=== PATIENT | male | born 1965 | race Two or more races ===

== ENCOUNTER 2018-06-21 04:25 | Emergency (ER) | payer SELFPAY ==
[2018-06-21] MEDS ORDERED: LIDOCAINE 1% INJ-PF (10 MG/ML) 30 ML SDV INJ ONE ×2 (07:34→10:36)
[2018-06-21] MEDS ORDERED: LIDOCAINE 4%/TETRACAINE 0.5%/EPI 0.18% 5 ML TOPICAL SOLN TOP ONE (07:48)
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
[2018-06-21 11:36] VITALS: BP 139/79
== END 2018-06-21 11:35 | disposition home or self-care (01) ==
LOC: ER 04:25
DX: S01.311A Laceration without foreign body of right ear, initial encounter (principal); Y04.2XXA Assault by strike against or bumped into by another person, initial encounter; H92.01 Otalgia, right ear; Y93.84 Activity, sleeping; M25.559 Pain in unspecified hip; F17.200 Nicotine dependence, unspecified, uncomplicated
CPT/HCPCS: 99284; 70450; 12013; J3490 ×2

== ENCOUNTER 2018-07-28 15:18 | Emergency (ER) | payer SELFPAY ==
[2018-07-28] MEDS ORDERED: ASPIRIN 81 MG TABLET, CHEWABLE PO ONE (15:33)
[2018-07-28] MEDS ORDERED: LORAZEPAM INJ 2 MG/1 ML VIAL IV ONE (15:47)
[2018-07-28] MEDS ORDERED: NORMAL SALINE 1000 ML 1,000 ML IV ONE (15:47)
--- NOTE | 2018-07-28 15:47 | ER Document Report ---
ED Blood Pressure Problem - General Chief Complaint: Blood Pressure Problem Stated Complaint: BLOOD PRESSURE ISSUES Time Seen by Provider: 07/28/18 15:44 Notes: Patient is a 52-year-old male who presents today stating that he feels "stupid" secondary to using crystal meth yesterday. Patient denies any other drugs. States some mild nausea and feels "exhausted and drained". He denies any other drugs. He denies any auditory or visual hallucinations. He denies any suicidal homicidal ideations. Patient specifically denies any headache, chest pain, abdominal pain, weakness or numbness. Patient denies a history of elevated blood pressure. TRAVEL OUTSIDE OF THE [place] IN LAST 30 DAYS: No - Related Data Allergies/Adverse Reactions: No Known Allergies Allergy (Unverified 07/28/18 15:23) Past Medical History - Social History Smoking Status: Unknown if Ever Smoked Family History: Reviewed & Not Pertinent Renal/ Medical History: Denies: Hx Peritoneal Dialysis Review of Systems - Review of Systems Constitutional: denies: Fever EENT: denies: Eye discharge, Nose discharge Cardiovascular: denies: Chest pain, Palpitations Respiratory: denies: Short of breath Gastrointestinal: denies: Vomiting Genitourinary: denies: Dysuria Musculoskeletal: denies: Leg swelling Skin: denies: Rash Neurological/Psychological: Other - no slurred speech -: Yes All other systems reviewed and negative Physical Exam - Vital signs Vitals: Pulse Resp BP Pulse Ox 113 H 20 174/123 H 100 07/28/18 15:23 07/28/18 15:23 07/28/18 15:23 07/28/18 15:23 Notes: Reviewed vital signs and nursing note as charted by RN. CONSTITUTIONAL: Alert and oriented and responds appropriately to questions. Well-appearing; well-nourished HEAD: Normocephalic; atraumatic EYES: PERRL; no nystagmus noted ENT: Normal nose; no rhinorrhea; moist mucous membranes; pharynx without lesions noted NECK: Supple without meningismus; non-tender; no cervical lymphadenopathy, no masses CARD: Tachycardic and regular; no murmurs; symmetric distal pulses RESP: Normal chest excursion without splinting or tachypnea; breath sounds clear and equal bilaterally ABD/GI: Normal bowel sounds; non-distended; soft, non-tender to deep palpation of all 4 quadrants of the abdomen BACK: The back appears normal and is non-tender to palpation EXT: Normal ROM in all joints; non-tender to palpation; no edema SKIN: No acute lesions noted NEURO: CN 2-12 intact; no nystagmus; 5/5 bilateral upper and lower extremity strength with sensation intact to light touch PSYCH: The patient's mood and manner are appropriate. Grooming and personal hygiene are appropriate. Course - Re-evaluation Re-evalutation: 07/28/18 15:46 Given the above history and physical examination I will provide a small dose of Ativan, liter of fluid, and obtain basic and cardiac labs. Patient currently denies any headache, chest pain, weakness or numbness. 07/28/18 16:26 Labs and troponin as recorded. Slightly elevated total CK. Patient's heart rate is improved. A liter of fluid has been provided. 07/28/18 16:36 EKG shows a heart rate of 108, sinus tachycardia, normal axis, no ST elevation or depression. 07/28/18 17:04 Heart rate is currently 97. Blood pressure is 160/100. Patient still denies any headache or chest pain. Labs as recorded. A liter of fluid and food has been provided. We will provide the patient outpatient follow-up with [facility] as well as a list of homeless shelters. Patient understands the importance of not doing drugs once again. Given that this is the first time I am seeing the patient with recent drug abuse, I will hold on blood pressure medications at this time until reassessment. - Vital Signs Vital signs: Temp Pulse Resp BP Pulse Ox 113 H 20 174/123 H 96 07/28/18 15:23 07/28/18 15:23 07/28/18 15:23 07/28/18 15:33 - Laboratory Result Diagrams: 07/28/18 15:41 07/28/18 15:41 Laboratory results interpreted by me: 07/28/18 07/28/18 15:41 15:41 WBC 11.6 H MCV 99 H MCH 34.2 H Sodium 135.0 L Potassium 3.5 L Chloride 97 L Glucose 112 H Creatine Kinase 298 H Total Protein 8.3 H Discharge - Discharge Clinical Impression: Drug abuse Condition: Good Disposition: HOME, SELF-CARE Additional Instructions: Please make sure that [facility]. Please refrain from use any illegal substances. Please make sure that you come back immediately with any headache, chest pain, vomiting, weakness or numbness, or any other acute problems. Please follow-up as we have discussed for repeat blood pressure check.
[2018-07-28 15:56] LABS: ABSOLUTE BASOPHILS # (AUTO) 0.1 10^3/uL (0.0-0.2); ABSOLUTE EOSINOPHILS # (AUTO) 0.1 10^3/uL (0.0-0.6); ABSOLUTE LYMPHOCYTES (AUTO) 3.4 10^3/uL (0.5-4.7); ABSOLUTE MONOCYTES (AUTO) 1.3 10^3/uL (0.1-1.4); ABSOLUTE NEUT (AUTO) 6.9 10^3/uL (1.7-8.2); BASOPHILS % (AUTO) 0.5 % (0-2); EOSINOPHILS % (AUTO) 0.5 % (0-6); HEMATOCRIT 45.7 % (37.9-51.0); HEMOGLOBIN 15.9 g/dL (13.5-17.0); MEAN CORPUSCULAR HEMOGLOBIN 34.2 pg (27.0-33.4); MEAN CORPUSCULAR HGB CONC 34.8 g/dL (32.0-36.0); MEAN CORPUSCULAR VOLUME 99 fl (80-97); MONOCYTES % (AUTO) 10.8 % (3-13); PLATELET COUNT 321 10^3/uL (150-450); RED BLOOD COUNT 4.64 10^6/uL (4.35-5.55); RED CELL DISTRIBUTION WIDTH 12.8 % (11.5-14.0); SEGMENTED NEUTROPHILS % (AUTO) 59.2 % (42-78); TOTAL CELLS COUNTED % (AUTO) 100 %; WHITE BLOOD COUNT 11.6 10^3/uL (4.0-10.5)
[2018-07-28 16:10] LABS: ALANINE AMINOTRANSFERASE 52 U/L (21-72); ALBUMIN 4.8 g/dL (3.5-5.0); ALKALINE PHOSPHATASE 91 U/L (38-126); ANION GAP 16 (5-19); ASPARTATE AMINO TRANSFERASE 41 U/L (17-59); BILIRUBIN,DIRECT 0.4 mg/dL (0.0-0.4); BLOOD UREA NITROGEN 10 mg/dL (7-20); CALCIUM 9.2 mg/dL (8.4-10.2); CARBON DIOXIDE 22 mmol/L (22-30); CHLORIDE 97 mmol/L (98-107); CREATINE KINASE 298 U/L (55-170); GLUCOSE 112 mg/dL (75-110); POTASSIUM 3.5 mmol/L (3.6-5.0); TOTAL PROTEIN 8.3 g/dL (6.3-8.2)
--- NOTE | 2018-07-28 16:19 | RADIOLOGY REPORT (SQ) ---
EXAM DESCRIPTION: CHEST SINGLE VIEW COMPLETED DATE/TIME: 07/28/2018 4:10 pm REASON FOR STUDY: HTN COMPARISON: None. EXAM PARAMETERS: NUMBER OF VIEWS: One view. TECHNIQUE: Single frontal radiographic view of the chest acquired. RADIATION DOSE: NA LIMITATIONS: None. FINDINGS: LUNGS AND PLEURA: No opacities, masses or pneumothorax. No pleural effusion. MEDIASTINUM AND HILAR STRUCTURES: No masses. Contour normal. HEART AND VASCULAR STRUCTURES: Heart normal in size. Normal vasculature. BONES: No acute findings. HARDWARE: None in the chest. OTHER: No other significant finding. IMPRESSION: 1. NO ACUTE RADIOGRAPHIC FINDING IN THE CHEST. TECHNICAL DOCUMENTATION: JOB ID: [id number] [employer]- All Rights Reserved Reading location - IP/workstation name: [email or web address]
[2018-07-28 16:20] LABS: CREATINE KINASE MB 3.42 ng/mL (<4.55)
[2018-07-28 16:21] LABS: TROPONIN I < 0.012 ng/mL
[2018-07-28] MEDS ORDERED: POTASSIUM CHLORIDE 10 MEQ CAPSULE.ER PO ONE (16:26)
[2018-07-28 18:05] VITALS: BP 164/105
--- NOTE | 2018-07-28 21:46 | EKG REPORT ---
SEVERITY:- BORDERLINE ECG - SINUS TACHYCARDIA BORDERLINE PROLONGED QT INTERVAL : Confirmed by: Mayi Muro MD 28-Jul-2018 21:45:21
== END 2018-07-28 17:50 | disposition home or self-care (01) ==
LOC: ER 15:18
DX: F19.10 Other psychoactive substance abuse, uncomplicated (principal); R11.0 Nausea; R53.1 Weakness; R03.0 Elevated blood-pressure reading, without diagnosis of hypertension
CPT/HCPCS: 93005; 99284; 96361; 96374; 36415; 82553; 82550; 85025; 80053; 84484; 71045; 93010; J2060; J7030

== ENCOUNTER 2018-10-24 10:31 | Inpatient (IN) | payer SELFPAY ==
[2018-10-24 10:58] LABS: ABSOLUTE LYMPHOCYTES (AUTO) 0.9 10^3/uL (0.5-4.7); ABSOLUTE MONOCYTES (AUTO) 0.5 10^3/uL (0.1-1.4); ABSOLUTE NEUT (AUTO) 4.4 10^3/uL (1.7-8.2); BASOPHILS % (AUTO) 0.3 % (0-2); EOSINOPHILS % (AUTO) 0.6 % (0-6); HEMATOCRIT 46.3 % (37.9-51.0); HEMOGLOBIN 15.8 g/dL (13.5-17.0); LYMPHOCYTES % (AUTO) 14.9 % (13-45); MEAN CORPUSCULAR HEMOGLOBIN 34.2 pg (27.0-33.4); MEAN CORPUSCULAR VOLUME 101 fl (80-97); MONOCYTES % (AUTO) 8.2 % (3-13); PLATELET COUNT 238 10^3/uL (150-450); RED CELL DISTRIBUTION WIDTH 13.4 % (11.5-14.0); TOTAL CELLS COUNTED % (AUTO) 100 %; WHITE BLOOD COUNT 5.8 10^3/uL (4.0-10.5)
[2018-10-24] MEDS ORDERED: NORMAL SALINE 1000 ML 1,000 ML IV PRN ×2 (11:07→11:10)
[2018-10-24 11:18] LABS: ALANINE AMINOTRANSFERASE 170 U/L (21-72); ALBUMIN 4.8 g/dL (3.5-5.0); ALKALINE PHOSPHATASE 74 U/L (38-126); ANION GAP 16 (5-19); ASPARTATE AMINO TRANSFERASE 262 U/L (17-59); BILIRUBIN,DIRECT 0.6 mg/dL (0.0-0.4); BILIRUBIN,TOTAL 1.9 mg/dL (0.2-1.3); BLOOD UREA NITROGEN 18 mg/dL (7-20); CALCIUM 9.7 mg/dL (8.4-10.2); CARBON DIOXIDE 24 mmol/L (22-30); CHLORIDE 94 mmol/L (98-107); GLUCOSE 167 mg/dL (75-110); POTASSIUM 4.2 mmol/L (3.6-5.0); SODIUM 133.8 mmol/L (137-145); TOTAL PROTEIN 8.7 g/dL (6.3-8.2)
[2018-10-24 11:19] LABS: ALCOHOL < 10 mg/dL (NONE DETECTED)
--- NOTE | 2018-10-24 12:27 | RADIOLOGY REPORT (SQ) ---
EXAM DESCRIPTION: CHEST SINGLE VIEW COMPLETED DATE/TIME: 10/24/2018 12:13 pm REASON FOR STUDY: seizure COMPARISON: 07/28/2018 EXAM PARAMETERS: NUMBER OF VIEWS: One view. TECHNIQUE: Single frontal radiographic view of the chest acquired. RADIATION DOSE: NA LIMITATIONS: None. FINDINGS: LUNGS AND PLEURA: No opacities, masses or pneumothorax. No pleural effusion. MEDIASTINUM AND HILAR STRUCTURES: No masses. Contour normal. HEART AND VASCULAR STRUCTURES: Heart normal in size. Normal vasculature. BONES: No acute findings. HARDWARE: None in the chest. OTHER: No other significant finding. IMPRESSION: No acute abnormality of the lungs. TECHNICAL DOCUMENTATION: JOB ID: [id number] [employer]- All Rights Reserved Reading location - IP/workstation name: [email or web address]
[2018-10-24 13:16] LABS: TROPONIN I < 0.012 ng/mL
[2018-10-24] MEDS ORDERED: NORMAL SALINE 1000 ML 1,000 ML IV ONE (13:54)
--- NOTE | 2018-10-24 14:06 | ER Document Report ---
Addendum entered and electronically signed by DAJUAN MUNOZ PA-C 10/24/18 19:50: Course - Vital Signs Vital signs: Temp Pulse Resp BP Pulse Ox 98.8 F 79 15 124/82 99 10/24/18 18:49 10/24/18 18:49 10/24/18 18:49 10/24/18 18:49 10/24/18 18:49 - Laboratory Result Diagrams: 10/24/18 10:45 10/24/18 10:45 Laboratory results interpreted by me: 10/24/18 10/24/18 10/24/18 10:45 10:45 10:45 MCV 101 H MCH 34.2 H Sodium 133.8 L Chloride 94 L Creatinine 1.58 H Est GFR ( Amer) 56 L Est GFR (Non-Af Amer) 46 L Glucose 167 H Magnesium 2.7 H Total Bilirubin 1.9 H Direct Bilirubin 0.6 H AST 262 H ALT 170 H Creatine Kinase 6400 H CK-MB (CK-2) Total Protein 8.7 H Urine Ketones Urine Blood 10/24/18 10/24/18 10:45 13:50 MCV MCH Sodium Chloride Creatinine Est GFR ( Amer) Est GFR (Non-Af Amer) Glucose Magnesium Total Bilirubin Direct Bilirubin AST ALT Creatine Kinase CK-MB (CK-2) 45.00 H Total Protein Urine Ketones TRACE H Urine Blood MODERATE H Original Note: ED Seizure - General Chief Complaint: Probable Seizure Stated Complaint: POSSIBLE SEIZURE Time Seen by Provider: 10/24/18 11:48 Information source: Patient Notes: Patient is a 52-year-old male who came into the emergency room complaining of generalized weakness and right ankle pain. Patient states that he stepped up on a curb felt pain in his ankle then became lightheaded dizzy. Patient denies any fall at the time but states that he just got really lightheaded. Became very nauseated as well. He came into the ER because this feeling. Also did not in the emergency room waiting area nursing noticed that he had this back to them noticed that he went rigid and started shaking all over and they got to me for her to slide out of the chair. They helped him to the ground and there was brought back to her room. Patient admits to drinking at least 2 beers a day and states that that is average. He also admits to smoking some crystal meth on this past Saturday and that he states was his first time. He denies any other illegal drug use. He works at [employer]. He denies any other medical problems with the exception of a history of fracture in the left ankle. He has no history of seizures. Denies any heart history. No family heart history. TRAVEL OUTSIDE OF THE [place] IN LAST 30 DAYS: No - HPI Patient complains to provider of: First seizure Number of episodes: 1 Time of onset: While in ER witnessed by nursing Duration: 3 minutes Quality of pain: Pressure, Sharp, Throbbing Severity: Severe Pain Level: 5 Continued on arrival to ED: Yes Can details of seizure be obtained/verified: Yes Episode witnessed (by whom): Yes - Nursing here in hospital Preceding symptoms/context: Recent alcohol intake, Recent drug use Character of seizure: Complete loss/conscious, Generalized shaking. No: Incontinent stool, Incontinent bladder, Stopped breathing, Lost pulse Post-ictal symptoms: Confusion, Lost motor, Lost sensation, Speech difficulty, Visual disturbance Injuries: Neck, RLE Associated Symptoms: Confusion, Loss consciousness - Related Data Allergies/Adverse Reactions: No Known Allergies Allergy (Unverified 07/28/18 15:23) Past Medical History - General Information source: Patient, Emergency Med Personnel - Social History Smoking Status: Current Every Day Smoker Cigarette use (# per day): Yes - Pack a day Chew tobacco use (# tins/day): No Smoking Education Provided: Yes Frequency of alcohol use: stopped tues, stopped meth also tues Drug Abuse: Methamphetamine Occupation: [employer] Lives with: Alone Family History: Reviewed & Not Pertinent Patient has suicidal ideation: No Patient has homicidal ideation: No Renal/ Medical History: Denies: Hx Peritoneal Dialysis Past Surgical History: Reports: Hx Orthopedic SurgeryComment Only: Hx Oral Surgery - L ankle,jaw fx Review of Systems - Review of Systems Constitutional: No symptoms reported EENT: No symptoms reported Cardiovascular: No symptoms reported Respiratory: No symptoms reported Gastrointestinal: No symptoms reported Genitourinary: No symptoms reported Male Genitourinary: No symptoms reported Musculoskeletal: Muscle pain, Neck pain, Ankle swelling Skin: No symptoms reported Hematologic/Lymphatic: No symptoms reported Neurological/Psychological: See HPI, Confusion Physical Exam - Vital signs Vitals: Resp Pulse Ox 19 94 10/24/18 10:36 10/24/18 10:36 Interpretation: Hypotensive - Notes Notes: PHYSICAL EXAMINATION: GENERAL: Patient is a 52-year-old male who is somewhat cachectic in appearance very thin slender gentleman very tall reddish complexion no apparent distress on physical exam today HEAD: Atraumatic, normocephalic. EYES: Pupils equal round and reactive to light, extraocular movements intact, sclera anicteric, conjunctiva are normal. ENT: Nares patent, oropharynx clear without exudates. Moist mucous membranes. NECK: Examination patient's cervical spine shows he has some muscle spasms noted on the left lateral side of his neck posteriorly as well. He has decreased range of motion with all planes. No meningismus type signs though. Patient has had no fever. LUNGS: Breath sounds clear to auscultation bilaterally and equal. No wheezes rales or rhonchi. HEART: Regular rate and rhythm without murmurs ABDOMEN: Soft, nontender, nondistended abdomen. No guarding, no rebound. No masses appreciated. Musculoskeletal: examination patient's right ankle shows her to be mild circumferential swelling right around the lateral medial malleolus is. Patient has full flexion extension of the ankle without any difficulty or pain. He also has good rotation with some mild discomfort. He has good vascular exam with dorsalis pedis normal and the posterior tibial pulses are also normal. There is no color differentiation between right and left. There is no temperature differentiation between right and left ankles. NEUROLOGICAL: Normal speech, normal gait. Normal sensory, motor exams PSYCH: Normal mood, normal affect. SKIN: Warm, Dry, normal turgor, no rashes or lesions noted. Course - Re-evaluation Re-evalutation: 10/24/18 15:28 Patient's finally arrived and asked to be updated on patient's status. Patient every time I went back into the room was complaining of some other aches and pain. He was observed having a seizure and it was seen by the nursing staff. He has comes back that his CK was at 6400 and then his urine drug screen came back that the amphetamines were too high to measure. I went back into the room and had a talk with the and patient. I informed him that this is causing him to have his seizures and that if it is going to get worse before gets better if he does not stop the amphetamines. I also informed him that he is going to need to come in and get hydration and and monitored for at least 24 hours. His cardiac work-up was good his x-rays have been negative at this point I have contacted the hospitalist and he is accepted admission. - Vital Signs Vital signs: Temp Pulse Resp BP Pulse Ox 97.5 F 102 H 20 86/68 L 97 10/24/18 10:49 10/24/18 10:49 10/24/18 11:01 10/24/18 11:01 10/24/18 11:01 - Laboratory Result Diagrams: 10/24/18 10:45 10/24/18 10:45 Laboratory results interpreted by me: 10/24/18 10/24/18 10/24/18 10:45 10:45 10:45 MCV 101 H MCH 34.2 H Sodium 133.8 L Chloride 94 L Creatinine 1.58 H Est GFR ( Amer) 56 L Est GFR (Non-Af Amer) 46 L Glucose 167 H Magnesium 2.7 H Total Bilirubin 1.9 H Direct Bilirubin 0.6 H AST 262 H ALT 170 H Creatine Kinase 6400 H CK-MB (CK-2) Total Protein 8.7 H Urine Ketones Urine Blood 10/24/18 10/24/18 10:45 13:50 MCV MCH Sodium Chloride Creatinine Est GFR ( Amer) Est GFR (Non-Af Amer) Glucose Magnesium Total Bilirubin Direct Bilirubin AST ALT Creatine Kinase CK-MB (CK-2) 45.00 H Total Protein Urine Ketones TRACE H Urine Blood MODERATE H Discharge - Discharge Clinical Impression: Dehydration, Amphetamine abuse Rhabdomyolysis Qualifiers: Rhabdomyolysis type: non-traumatic Qualified Code(s): M62.82 - Rhabdomyolysis Condition: Stable Disposition: ADMITTED INPATIENT Admitting Provider: Dina (Hospitalist) Unit Admitted: [facility]
[2018-10-24 14:21] LABS: APPEARANCE,URINE SLIGHTLY-CLOUDY; BILIRUBIN,URINE NEGATIVE (NEGATIVE); COLOR,URINE YELLOW; GLUCOSE, URINE NEGATIVE (NEGATIVE); KETONES,URINE TRACE mg/dL (NEGATIVE); LEUKOCYTE ESTERASE,URINE NEGATIVE (NEGATIVE); NITRITE,URINE NEGATIVE (NEGATIVE); PROTEIN,URINE NEGATIVE (NEGATIVE); URINE SPECIFIC GRAVITY 1.006; UROBILINOGEN,URINE NEGATIVE mg/dL (<2.0)
--- NOTE | 2018-10-24 14:32 | RADIOLOGY REPORT (SQ) ---
EXAM DESCRIPTION: CT HEAD WITHOUT COMPLETED DATE/TIME: 10/24/2018 2:17 pm REASON FOR STUDY: new onset seizure COMPARISON: 06/21/2018 TECHNIQUE: Axial images acquired through the brain without intravenous contrast. Images reviewed wi th bone, brain and subdural windows. Additional sagittal and coronal reconstructions were generated. Images stored on PACS. All CT scanners at this facility use dose modulation, iterative reconstruction, and/or weight based d osing when appropriate to reduce radiation dose to as low as reasonably achievable (ALARA). [facility]: Dose Right [facility]: CareDose [facility]: Dose Right [facility]: Teradose 4D [facility]: [employer] RADIATION DOSE: CT Rad equipment meets quality standard of care and radiation dose reduction techniq ues were employed. CTDIvol: 53.2 mGy. DLP: 991 mGy-cm. mGy. LIMITATIONS: None. FINDINGS: VENTRICLES: Normal size and contour. CEREBRUM: No masses. No hemorrhage. No midline shift. No evidence for acute infarction. Normal gra y/white matter differentiation. No areas of low density in the white matter. CEREBELLUM: No masses. No hemorrhage. No alteration of density. No evidence for acute infarction. EXTRAAXIAL SPACES: No fluid collections. No masses. ORBITS AND GLOBE: No intra- or extraconal masses. Normal contour of globe without masses. CALVARIUM: No fracture. PARANASAL SINUSES: Re- demonstration of chronic appearing complete opacification of the left maxillar y, left anterior ethmoid, and left frontal sinuses, unchanged in the study interval. SOFT TISSUES: No mass or hematoma. OTHER: No other significant finding. IMPRESSION: No evidence of acute intracranial abnormality. Chronic left paranasal sinusitis with daniel ny remodeling. If not already performed, consider routine outpatient ENT evaluation. EVIDENCE OF ACUTE STROKE: NO. COMMENT: Quality ID # [id number]: Final reports with documentation of one or more dose reduction techniques (e.g., Automated exposure control, adjustment of the mA and/or kV according to patient size, use of iterative reconstruction technique) TECHNICAL DOCUMENTATION: JOB ID: [id number] [employer]- All Rights Reserved Reading location - IP/workstation name: [email or web address]
[2018-10-24 14:33] LABS: URINE BARBITURATES SCREEN NEGATIVE; URINE BENZODIAZEPINES SCREEN NEGATIVE; URINE COCAINE SCREEN NEGATIVE; URINE MARIJUANA (THC) SCREEN NEGATIVE; URINE METHADONE SCREEN NEGATIVE; URINE PHENCYCLIDINE SCREEN NEGATIVE
--- NOTE | 2018-10-24 14:57 | RADIOLOGY REPORT (SQ) ---
EXAM DESCRIPTION: CERV SP 3 VIEW OR LESS COMPLETED DATE/TIME: 10/24/2018 2:45 pm REASON FOR STUDY: pain after seizure COMPARISON: None. NUMBER OF VIEWS: Three views. TECHNIQUE: AP, lateral and odontoid radiographic images acquired of the cervical spine. LIMITATIONS: The C6/7 interval is not well evaluated. FINDINGS: MINERALIZATION: Normal. ALIGNMENT: There is relative straightening of the normal lordotic curvature. VERTEBRAE: There is mild flattening an AP elongation of the C5 and C6 vertebral bodies on the basis o f spondylotic change. Uncovertebral hypertrophy is seen at all levels. There is no evidence of frac ture or subluxation. DISCS: Mild loss of intervertebral disc height is seen at the C5/6 level. HARDWARE: Plate and screw hardware fixation is seen of the mentum. SOFT TISSUES: No masses or calcifications. Lung apices clear. OTHER: No other significant finding. IMPRESSION: No evidence of acute osseous injury. Background of multilevel spondylotic changes. TECHNICAL DOCUMENTATION: JOB ID: [id number] [employer]- All Rights Reserved Reading location - IP/workstation name: [email or web address]
--- NOTE | 2018-10-24 14:59 | RADIOLOGY REPORT (SQ) ---
EXAM DESCRIPTION: ANKLE RIGHT COMPLETE COMPLETED DATE/TIME: 10/24/2018 2:45 pm REASON FOR STUDY: pain COMPARISON: None. NUMBER OF VIEWS: Three views. TECHNIQUE: AP, lateral, and oblique radiographic images acquired of the right ankle. LIMITATIONS: None. FINDINGS: MINERALIZATION: Normal. BONES: No acute fracture or dislocation. No worrisome bone lesions. Incidental note is made of an a pparent type 2 accessory navicular. JOINTS: No effusions. SOFT TISSUES: No soft tissue swelling. No foreign body. OTHER: No other significant finding. IMPRESSION: No evidence of acute osseous injury. TECHNICAL DOCUMENTATION: JOB ID: [id number] [employer]- All Rights Reserved Reading location - IP/workstation name: [email or web address]
[2018-10-24] MEDS ORDERED: ONDANSETRON HCL INJ/PF 4 MG/2 ML SDV IV PRN (15:30)
[2018-10-24] MEDS ORDERED: ACETAMINOPHEN 325 MG TABLET PO PRN (15:30)
[2018-10-24] MEDS ORDERED: LORAZEPAM INJ 2 MG/1 ML VIAL IV PRN (15:35)
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
[2018-10-24] MEDS ORDERED: NICOTINE 21 MG/24 HR PATCH.TD24 TD ONE (17:00)
[2018-10-24] MEDS: NORMAL SALINE 1000 ML 1,000 ML IV PRN (18:52)
[2018-10-24] MEDS: ENOXAPARIN SODIUM INJ 40 MG/0.4 ML DISP.SYRIN SUBCUT SCH (18:52)
--- NOTE | 2018-10-24 19:27 | EKG REPORT ---
SEVERITY:- ABNORMAL ECG - SINUS TACHYCARDIA MARKEDLY POSTERIOR QRS AXIS LOW VOLTAGE IN FRONTAL LEADS BORDERLINE PROLONGED QT INTERVAL : Confirmed by: Mayi Muro MD 24-Oct-2018 19:25:53
[2018-10-24] MEDS: FAMOTIDINE INJ/PF 20 MG/2 ML SDV IV SCH (21:21)
[2018-10-24] MEDS: LEVETIRACETAM 500 MG/NACL-ISO 500 MG/100 ML RTUPB IV SCH (22:05)
[2018-10-25] MEDS: NORMAL SALINE 1000 ML 1,000 ML IV PRN ×2 (04:45→14:55)
[2018-10-25 05:35] LABS: ABSOLUTE EOSINOPHILS # (AUTO) 0.2 10^3/uL (0.0-0.6); ABSOLUTE LYMPHOCYTES (AUTO) 1.9 10^3/uL (0.5-4.7); ABSOLUTE MONOCYTES (AUTO) 0.7 10^3/uL (0.1-1.4); ABSOLUTE NEUT (AUTO) 3.8 10^3/uL (1.7-8.2); BASOPHILS % (AUTO) 0.6 % (0-2); EOSINOPHILS % (AUTO) 3.1 % (0-6); HEMATOCRIT 40.8 % (37.9-51.0); LYMPHOCYTES % (AUTO) 28.5 % (13-45); MEAN CORPUSCULAR HEMOGLOBIN 34.3 pg (27.0-33.4); MEAN CORPUSCULAR HGB CONC 33.6 g/dL (32.0-36.0); MEAN CORPUSCULAR VOLUME 102 fl (80-97); MONOCYTES % (AUTO) 10.3 % (3-13); PLATELET COUNT 191 10^3/uL (150-450); RED CELL DISTRIBUTION WIDTH 13.9 % (11.5-14.0); SEGMENTED NEUTROPHILS % (AUTO) 57.5 % (42-78); TOTAL CELLS COUNTED % (AUTO) 100 %; WHITE BLOOD COUNT 6.6 10^3/uL (4.0-10.5)
[2018-10-25 05:38] LABS: HEMOGLOBIN 13.7 g/dL (13.5-17.0)
[2018-10-25 05:51] LABS: ALANINE AMINOTRANSFERASE 122 U/L (21-72); ALBUMIN 3.5 g/dL (3.5-5.0); ALKALINE PHOSPHATASE 52 U/L (38-126); ANION GAP 8 (5-19); ASPARTATE AMINO TRANSFERASE 176 U/L (17-59); BILIRUBIN,DIRECT 0.7 mg/dL (0.0-0.4); BILIRUBIN,TOTAL 1.8 mg/dL (0.2-1.3); BLOOD UREA NITROGEN 14 mg/dL (7-20); CALCIUM 8.5 mg/dL (8.4-10.2); CARBON DIOXIDE 22 mmol/L (22-30); CHLORIDE 109 mmol/L (98-107); CHOLESTEROL 153.97 mg/dL (0-200); GLUCOSE 73 mg/dL (75-110); POTASSIUM 3.6 mmol/L (3.6-5.0); SODIUM 139.3 mmol/L (137-145); TOTAL PROTEIN 6.7 g/dL (6.3-8.2); TRIGLYCERIDES 126 mg/dL (<150)
[2018-10-25 06:02] LABS: DIRECT LDL 61 mg/dL (<100)
[2018-10-25] MEDS: ENOXAPARIN SODIUM INJ 40 MG/0.4 ML DISP.SYRIN SUBCUT SCH (09:41)
[2018-10-25] MEDS: FAMOTIDINE INJ/PF 20 MG/2 ML SDV IV SCH ×2 (09:41→21:40)
[2018-10-25] MEDS: LEVETIRACETAM 500 MG/NACL-ISO 500 MG/100 ML RTUPB IV SCH (09:41)
--- NOTE | 2018-10-25 13:41 | PDOC PROGRESS REPORT ---
Subjective Progress Note for:: 10/25/18 Subjective:: No adverse events overnight. No new complaints. No more seizure activity. He said his last drink was 3 days ago. He said he is never had seizures before. He did seem a little bit anxious. Reason For Visit: DRUG OVERDOSE Physical Exam Vital Signs: Temp Pulse Resp BP Pulse Ox 98.5 F 71 18 110/70 99 10/25/18 11:59 10/25/18 11:59 10/25/18 11:59 10/25/18 11:59 10/25/18 11:59 Intake & Output 10/24/18 10/25/18 10/26/18 06:59 06:59 06:59 Intake Total 3088 929 Output Total 575 350 Balance 2513 579 Weight 65.3 kg General appearance: PRESENT: no acute distress, cooperative, disheveled, thin Teeth exam: PRESENT: poor dentation Respiratory exam: PRESENT: clear to auscultation amilcar, symmetrical, unlabored. ABSENT: accessory muscle use, crackles, prolonged expiratory phas, rhonchi, tachypnea, wheezes Cardiovascular exam: PRESENT: RRR, +S1, +S2 Pulses: PRESENT: normal carotid pulses Vascular exam: PRESENT: normal capillary refill GI/Abdominal exam: PRESENT: normal bowel sounds, soft. ABSENT: distended, guarding, rebound, tenderness Extremities exam: ABSENT: clubbing, pedal edema Musculoskeletal exam: PRESENT: normal inspection. ABSENT: deformity Neurological exam: PRESENT: alert, awake, oriented to person, oriented to place, oriented to situation Psychiatric exam: PRESENT: anxious Skin exam: PRESENT: dry, warm Results Laboratory Results: 10/25/18 05:15 10/25/18 05:15 10/24/18 10/25/18 10/25/18 13:50 05:15 05:15 WBC 6.6 RBC 4.00 L Hgb 13.7 D Hct 40.8 MCV 102 H MCH 34.3 H MCHC 33.6 RDW 13.9 Plt Count 191 Seg Neutrophils % 57.5 Lymphocytes % 28.5 Monocytes % 10.3 Eosinophils % 3.1 Basophils % 0.6 Absolute Neutrophils 3.8 Absolute Lymphocytes 1.9 Absolute Monocytes 0.7 Absolute Eosinophils 0.2 Absolute Basophils 0.0 Sodium 139.3 Potassium 3.6 Chloride 109 H Carbon Dioxide 22 Anion Gap 8 BUN 14 Creatinine 0.72 Est GFR ( Amer) > 60 Est GFR (Non-Af Amer) > 60 Glucose 73 L Calcium 8.5 Magnesium 2.2 Total Bilirubin 1.8 H AST 176 H ALT 122 H Alkaline Phosphatase 52 Total Protein 6.7 Albumin 3.5 Triglycerides 126 Cholesterol 153.97 LDL Cholesterol Direct 61 VLDL Cholesterol 25.0 HDL Cholesterol 84 TSH Urine Color YELLOW Urine Appearance SLIGHTLY-CLOUDY Urine pH 6.0 Ur Specific [place] 1.006 Urine Protein NEGATIVE Urine Glucose (UA) NEGATIVE Urine Ketones TRACE H Urine Blood MODERATE H Urine Nitrite NEGATIVE Ur Leukocyte Esterase NEGATIVE Urine WBC (Auto) 1 Urine RBC (Auto) 1 10/25/18 05:15 WBC RBC Hgb Hct MCV MCH MCHC RDW Plt Count Seg Neutrophils % Lymphocytes % Monocytes % Eosinophils % Basophils % Absolute Neutrophils Absolute Lymphocytes Absolute Monocytes Absolute Eosinophils Absolute Basophils Sodium Potassium Chloride Carbon Dioxide Anion Gap BUN Creatinine Est GFR ( Amer) Est GFR (Non-Af Amer) Glucose Calcium Magnesium Total Bilirubin AST ALT Alkaline Phosphatase Total Protein Albumin Triglycerides Cholesterol LDL Cholesterol Direct VLDL Cholesterol HDL Cholesterol TSH 1.91 Urine Color Urine Appearance Urine pH Ur Specific [place] Urine Protein Urine Glucose (UA) Urine Ketones Urine Blood Urine Nitrite Ur Leukocyte Esterase Urine WBC (Auto) Urine RBC (Auto) 10/24/18 10/24/18 10/24/18 10:45 10:45 16:57 Creatine Kinase 6400 H 6243 H CK-MB (CK-2) 45.00 H Troponin I < 0.012 NT-Pro-B Natriuret Pep 10/24/18 10/24/18 10/24/18 16:57 23:01 23:01 Creatine Kinase 5562 H CK-MB (CK-2) Troponin I < 0.012 < 0.012 NT-Pro-B Natriuret Pep 10/25/18 10/25/18 10/25/18 05:15 05:15 05:15 Creatine Kinase 4335 H CK-MB (CK-2) Troponin I < 0.012 NT-Pro-B Natriuret Pep 47 Impressions: Chest X-Ray 10/24/18 12:03 IMPRESSION: No acute abnormality of the lungs. Head CT 10/24/18 13:59 IMPRESSION: No evidence of acute intracranial abnormality. 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 If not already performed, consider routine outpatient ENT evaluation. EVIDENCE OF ACUTE STROKE: NO. Ankle X-Ray 10/24/18 14:00 IMPRESSION: No evidence of acute osseous injury. Cervical Spine X-Ray 10/24/18 14:00 IMPRESSION: No evidence of acute osseous injury. Background of multilevel spondylotic changes. Assessment and Plan - Diagnosis (1) TALIA (acute kidney injury) Is this a current diagnosis for this admission?: Yes Plan: Resolved (2) Amphetamine abuse Is this a current diagnosis for this admission?: Yes Plan: Strongly encourage cessation. (3) Dehydration Is this a current diagnosis for this admission?: Yes Plan: Resolved (4) Hyponatremia Is this a current diagnosis for this admission?: Yes Plan: Resolved (5) Rhabdomyolysis Qualifiers: Rhabdomyolysis type: non-traumatic Qualified Code(s): M62.82 - Rhabdomyolysis Is this a current diagnosis for this admission?: Yes Plan: Resolved. CPK below 5000. IV fluids discontinued. (6) Seizure Is this a current diagnosis for this admission?: Yes Plan: I suspect that these were withdrawal seizures. He said that he had not had a drink in about 3 days never had a seizure. He said also been doing some methamphetamine. He has never had seizures before. He is been on a couple do ses of Keppra. We are going to keep him off of Keppra have some PRN Ativan available for any withdrawal symptoms. If he does not have any evidence of seizures or withdrawal symptoms through the day today and into tomorrow, we may be able to discharge him home. - Time Time Spent with patient: 15-24 minutes
[2018-10-26] MEDS: NORMAL SALINE 1000 ML 1,000 ML IV PRN (00:46)
[2018-10-26] MEDS: FAMOTIDINE INJ/PF 20 MG/2 ML SDV IV SCH (09:27)
[2018-10-26] MEDS: ENOXAPARIN SODIUM INJ 40 MG/0.4 ML DISP.SYRIN SUBCUT SCH (09:27)
[2018-10-26] MEDS ORDERED: NICOTINE 21 MG/24 HR PATCH.TD24 TD SCH (10:00)
[2018-10-26 12:10] VITALS: BP 124/82
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
== END 2018-10-26 12:13 | disposition home or self-care (01) | DRG 558 ==
LOC: ER 10:31 → EH 15:46 → 3W 18:20
PROVIDERS: ADMIT Internal Medicine; ATTEND Internal Medicine
DX: M62.82 Rhabdomyolysis (principal); N17.9 Acute kidney failure, unspecified; E87.1 Hypo-osmolality and hyponatremia; E86.0 Dehydration; F15.10 Other stimulant abuse, uncomplicated; F17.210 Nicotine dependence, cigarettes, uncomplicated; R56.9 Unspecified convulsions; Z60.2 Problems related to living alone
CPT/HCPCS: 36415; 70450; 71045; 72040; 80053; 80061; 80307; 81001; 82550; 82553; 83036; 83735; 83880; 84443; 84484; 85025; 93005; 93010; 96360; 96361; 99285; J1650; J1953; J7030; S0028

== ENCOUNTER 2019-01-28 10:15 | Emergency (ER) | payer SELFPAY ==
[2019-01-28 10:58] LABS: ABSOLUTE BASOPHILS # (AUTO) 0.1 10^3/uL (0.0-0.2); ABSOLUTE EOSINOPHILS # (AUTO) 0.2 10^3/uL (0.0-0.6); ABSOLUTE MONOCYTES (AUTO) 0.8 10^3/uL (0.1-1.4); HEMOGLOBIN 15.5 g/dL (13.5-17.0); TOTAL CELLS COUNTED % (AUTO) 100 %
[2019-01-28 11:01] LABS: ABSOLUTE NEUT (AUTO) 4.1 10^3/uL (1.7-8.2); BASOPHILS % (AUTO) 0.8 % (0-2); EOSINOPHILS % (AUTO) 2.4 % (0-6); HEMATOCRIT 46.1 % (37.9-51.0); LYMPHOCYTES % (AUTO) 28.2 % (13-45); MEAN CORPUSCULAR HEMOGLOBIN 32.8 pg (27.0-33.4); MEAN CORPUSCULAR HGB CONC 33.6 g/dL (32.0-36.0); MEAN CORPUSCULAR VOLUME 98 fl (80-97); MONOCYTES % (AUTO) 11.1 % (3-13); PLATELET COUNT 377 10^3/uL (150-450); RED BLOOD COUNT 4.71 10^6/uL (4.35-5.55); RED CELL DISTRIBUTION WIDTH 13.5 % (11.5-14.0); SEGMENTED NEUTROPHILS % (AUTO) 57.5 % (42-78)
[2019-01-28] MEDS ORDERED: NORMAL SALINE 1000 ML 1,000 ML IV ONE ×2 (11:10→13:06)
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
[2019-01-28 11:15] LABS: ALBUMIN 4.3 g/dL (3.5-5.0); ALKALINE PHOSPHATASE 64 U/L (38-126); ANION GAP 10 (5-19); ASPARTATE AMINO TRANSFERASE 96 U/L (17-59); BILIRUBIN,DIRECT 0.4 mg/dL (0.0-0.4); BILIRUBIN,TOTAL 1.3 mg/dL (0.2-1.3); BLOOD UREA NITROGEN 18 mg/dL (7-20); CARBON DIOXIDE 26 mmol/L (22-30); CHLORIDE 98 mmol/L (98-107); CREATINE KINASE 1180 U/L (55-170); GLUCOSE 124 mg/dL (75-110); TOTAL PROTEIN 7.8 g/dL (6.3-8.2)
--- NOTE | 2019-01-28 11:21 | ER Document Report ---
ED General - General Chief Complaint: Dizziness Stated Complaint: LIGHT HEADED Time Seen by Provider: 01/28/19 11:08 TRAVEL OUTSIDE OF THE [place] IN LAST 30 DAYS: No - HPI Notes: 53-year-old male to the emergency department via EMS with complaints of syncopal episode today just prior to arrival. He states that he was at court when he began to feel lightheaded and then passed out for about 10 seconds. Patient states that he thinks that he had a seizure but he states that as soon as he came to he was able to talk and acts normally. Medics do not report any seizure activity. Patient admits that he used crystal meth last night. He states that when he used crystal meth last he had a similar experience. He denies any chest pain, shortness of breath, nausea, vomiting, abdominal pain. He denies any urinary complaints. He states that he does feel weak but he denies any other complaints today. He states that he does drink alcohol and he smokes. - Related Data Allergies/Adverse Reactions: acetaminophen [From Vicodin] Allergy (Verified 01/28/19 10:54) hydrocodone [From Vicodin] Allergy (Verified 01/28/19 10:54) Past Medical History - General Information source: Patient, Emergency Med Personnel - Social History Smoking Status: Current Every Day Smoker Chew tobacco use (# tins/day): No Frequency of alcohol use: Heavy Drug Abuse: Methamphetamine Lives with: Spouse/Significant other Family History: Reviewed & Not Pertinent Patient has suicidal ideation: No Patient has homicidal ideation: No Renal/ Medical History: Denies: Hx Peritoneal Dialysis Past Surgical History: Reports: Hx Orthopedic SurgeryComment Only: Hx Oral Surgery - L ankle,jaw fx Review of Systems - Review of Systems Constitutional: See HPI, Weakness. denies: Chills, Fever EENT: No symptoms reported Cardiovascular: See HPI, Syncope, Lightheaded. denies: Chest pain, Palpitations, Dyspnea, Dizziness Respiratory: denies: Cough, Short of breath Gastrointestinal: denies: Abdominal pain, Diarrhea, Nausea, Vomiting Genitourinary: No symptoms reported Male Genitourinary: No symptoms reported Musculoskeletal: No symptoms reported Skin: No symptoms reported Hematologic/Lymphatic: No symptoms reported Neurological/Psychological: See HPI, Weakness -: Yes All other systems reviewed and negative Physical Exam - Vital signs Vitals: Resp BP 16 115/90 H 01/28/19 10:26 01/28/19 10:26 Interpretation: Normal - General General appearance: Appears well In distress: None - HEENT Head: Normocephalic, Atraumatic Eyes: Normal Pupils: PERRL Ears: Normal External canal: Normal Tympanic membrane: Normal Sinus: Normal Nasal: Normal Mouth/Lips: Normal Mucous membranes: Normal Pharynx: Normal Neck: Normal - Respiratory Respiratory status: No respiratory distress Chest status: Nontender Breath sounds: Normal Chest palpation: Normal - Cardiovascular Rhythm: Regular Heart sounds: Normal auscultation Murmur: No - Abdominal Inspection: Normal Distension: No distension Bowel sounds: Normal Tenderness: Nontender Organomegaly: No organomegaly - Back Back: Normal, Nontender. No: CVA tenderness - Extremities General upper extremity: Normal inspection, Nontender, Normal color, Normal ROM, Normal temperature General lower extremity: Normal inspection, Nontender, Normal color, Normal ROM, Normal temperature, Normal weight bearing - Neurological Neuro grossly intact: Yes Cognition: Normal Orientation: AAOx4 [place] Coma Scale Eye Opening: Spontaneous [place] Coma Scale Verbal: Oriented [place] Coma Scale Motor: Obeys Commands [place] Coma Scale Total: 15 Speech: Normal Cranial nerves: Normal. No: Facial palsy, Forehead sparing, Gaze palsy, Sensory deficit, Tongue deviation Cerebellar coordination: Normal. No: Gait ataxia Motor strength normal: LUE, RUE, LLE, RLE Additional motor exam normals: Equal mend worker. No: Pronator drift Sensory: Normal - Psychological Associated symptoms: Normal affect, Normal mood - Skin Skin Temperature: Warm Skin Moisture: Dry Skin Color: Normal Course - Re-evaluation Re-evalutation: 01/28/19 Noted lab work with evidence for rhabdo. Mildly elevated creatinine but BUN is reassuring. We will give patient another bag of fluids. Will trend troponin. Will obtain orthostatic vital signs as well as ambulate patient. Did suggest head CT given patient's story but he has declined. He has no focal neurological symptoms. Noted negative troponin. Patient states that he is feeling much better after poole ving 2 bags of fluid. He admits that he usually only drinks alcohol occasionally but he drank quite a bit this past weekend. He was able to ambulate about the emergency department without any difficulty. He is not orthostatic. His vitals are reassuring. His EKG is reassuring. He does not have a significant acute kidney injury. Have encouraged him to push fluids to rest to avoid alcohol and to avoid meth use. Patient agrees with the plan will discharge home; urged to return if he has worsening symptoms. - Vital Signs Vital signs: Temp Pulse Resp BP Pulse Ox 97.7 F 24 H 123/88 H 01/28/19 10:44 01/28/19 16:01 01/28/19 16:01 - Laboratory Result Diagrams: 01/28/19 10:45 01/28/19 10:45 Laboratory results interpreted by me: 01/28/19 01/28/19 01/28/19 10:45 10:45 10:45 MCV 98 H Sodium 133.7 L Creatinine 1.29 H Est GFR (MDRD) Non-Af 58 L Glucose 124 H AST 96 H Creatine Kinase 1180 H CK-MB (CK-2) 9.12 H Urine Protein Urine Ketones 01/28/19 13:30 MCV Sodium Creatinine Est GFR (MDRD) Non-Af Glucose AST Creatine Kinase CK-MB (CK-2) Urine Protein 30 H Urine Ketones 20 H - EKG Interpretation by Me EKG shows normal: Sinus rhythm Rate: Normal Rhythm: NSR When compared to previous EKG there are: No significant change Additional EKG results interpreted by me: 01/28/19 13:53 Rate of 97, sinus rhythm. Prolonged QT.. Left anterior fascicular block. This is not significantly different from prior on October 24, 2018. No T wave invasion. ST elevations. No STEMI. Discharge - Discharge Clinical Impression: Dehydration Syncope Qualifiers: Syncope type: unspecified Qualified Code(s): R55 - Syncope and collapse Rhabdomyolysis Qualifiers: Rhabdomyolysis type: non-traumatic Qualified Code(s): M62.82 - Rhabdomyolysis Condition: Stable Disposition: HOME, SELF-CARE Instructions: Dehydration ([facility]) Additional Instructions: PUSH FLUIDS. AVOID ANY DIURETIC FLUIDS SUCH CAFFEINE, ALCOHOL. FOLLOW UP WITH PRIMARY CARE CLINIC IN ONE WEEK FOR FURTHER MANAGEMENT. RETURN IMMEDIATELY IF WORSENING SYMPTOMS, RECURRENT PASSING OUT.
[2019-01-28 11:26] LABS: CREATINE KINASE MB 9.12 ng/mL (<4.55)
[2019-01-28 11:28] LABS: TROPONIN I < 0.012 ng/mL
[2019-01-28 14:11] LABS: APPEARANCE,URINE CLOUDY; BILIRUBIN,URINE NEGATIVE (NEGATIVE); COLOR,URINE YELLOW; GLUCOSE, URINE NEGATIVE (NEGATIVE); KETONES,URINE 20 mg/dL (NEGATIVE); LEUKOCYTE ESTERASE,URINE NEGATIVE (NEGATIVE); NITRITE,URINE NEGATIVE (NEGATIVE); PROTEIN,URINE 30 mg/dL (NEGATIVE); URINE SPECIFIC GRAVITY 1.018; UROBILINOGEN,URINE NEGATIVE mg/dL (<2.0)
[2019-01-28 15:23] LABS: URINE BARBITURATES SCREEN NEGATIVE; URINE BENZODIAZEPINES SCREEN NEGATIVE; URINE COCAINE SCREEN NEGATIVE; URINE MARIJUANA (THC) SCREEN NEGATIVE; URINE METHADONE SCREEN NEGATIVE; URINE PHENCYCLIDINE SCREEN NEGATIVE
[2019-01-28 16:58] VITALS: BP 123/88
--- NOTE | 2019-01-29 14:19 | EKG REPORT ---
SEVERITY:- ABNORMAL ECG - SINUS RHYTHM LEFT ANTERIOR FASCICULAR BLOCK BORDERLINE PROLONGED QT INTERVAL : Confirmed by: Romina Fernandez 29-Jan-2019 14:18:31
== END 2019-01-28 17:00 | disposition home or self-care (01) ==
LOC: ER 10:15
DX: R55 Syncope and collapse (principal); E86.0 Dehydration; M62.82 Rhabdomyolysis; R42 Dizziness and giddiness; F15.10 Other stimulant abuse, uncomplicated; F17.200 Nicotine dependence, unspecified, uncomplicated; I44.4 Left anterior fascicular block; Z88.5 Allergy status to narcotic agent; Z88.6 Allergy status to analgesic agent
CPT/HCPCS: 93005; 99284; 96360; 96361; 36415; 82553; 82550; 85025; 80053; 81001; 84484; 80307; 93010; J7030